=== PATIENT | male | born 1990 | race Hispanic/Latino ===

== ENCOUNTER → 2022-06-20 | Day surgery (SDC) | payer OTHER ==
[~2022-06-20] MED LIST: FENTANYL CITRATE/PF 100MCG/2 ML INJ ONE; MELATONIN3 MG PO; MIDAZOLAM HCL 2 MG/2 ML VIAL ONE; POVIDONE IODINE 0.05% 0.05 % ML PO ONE; PROPOFOL IV EMULSION 10 MG/ML 20 ML VIAL ONE; SIMVASTATIN40 MG PO
[2022-06-20 08:45] VITALS: BP 115/72
== END | disposition home or self-care (01) ==
LOC: OR 06:27
PROVIDERS: ATTEND Internal Medicine Gastroenterology
DX: K57.92 Diverticulitis of intestine, part unspecified, without perforation or abscess without bleeding (principal); K64.8 Other hemorrhoids; Z71.3 Dietary counseling and surveillance; I10 Essential (primary) hypertension; H91.90 Unspecified hearing loss, unspecified ear; E78.00 Pure hypercholesterolemia, unspecified; F17.210 Nicotine dependence, cigarettes, uncomplicated; Z71.6 Tobacco abuse counseling; Z68.26 Body mass index [BMI] 26.0-26.9, adult; Z80.0 Family history of malignant neoplasm of digestive organs
CPT/HCPCS: 45378; J2250; J2704; J3010